=== PATIENT | male | born 1965 | race Caucasian/White ===

== ENCOUNTER 2024-09-16 07:53 | Observation (INO) | payer BC ==
--- NOTE | 2024-09-16 08:21 | ED ---
General Adult HPI - General Chief complaint: Neuro Symptoms/Deficit Stated complaint: Paresthesia Time Seen by Provider: 09/16/24 08:01 Source: patient, family, RN notes reviewed Mode of arrival: ambulatory Limitations: no limitations - History of Present Illness Initial comments: Patient is a 59-year-old male present to the emergency department with concerns for left arm paresthesias. Onset of symptoms was around 615 this morning. Symptoms have somewhat progressed and is now most of the arm. Patient also has mild paresthesias left left. No leg involvement. No right side involvement. No weakness. Patient did have some difficulty concentrating when trying to drive to work. Patient denies feeling off balance however family has concerns that he may have been walking a little bit funny. No speech problems. - Related Data Home Medications Medication Instructions Recorded Confirmed No Known Home Medications 09/16/24 09/16/24 Allergies Allergy/AdvReac Type Severity Reaction Status Date / Time No Known Allergies Allergy Verified 09/16/24 10:37 Review of Systems ROS Statement: Those systems with pertinent positive or pertinent negative responses have been documented in the HPI. ROS Other: All systems not noted in ROS Statement are negative. Constitutional: Denies: fever Eyes: Denies: eye pain ENT: Denies: ear pain Respiratory: Denies: cough Cardiovascular: Denies: chest pain Endocrine: Denies: fatigue Gastrointestinal: Denies: abdominal pain Genitourinary: Denies: dysuria Musculoskeletal: Denies: back pain Skin: Denies: rash Neurological: Reports: as per HPI Past Medical History Past Medical History: No Reported History Past Surgical History: No Surgical Hx Reported Smoking Status: Current every day smoker Past Alcohol Use History: Occasional Past Drug Use History: None Reported General Exam Limitations: no limitations General appearance: alert, in no apparent distress Head exam: Present: atraumatic, normocephalic Eye exam: Present: normal appearance, PERRL, EOMI. Absent: nystagmus ENT exam: Present: normal oropharynx Neck exam: Present: normal inspection Respiratory exam: Present: normal lung sounds bilaterally Cardiovascular Exam: Present: regular rate, normal rhythm GI/Abdominal exam: Present: soft. Absent: tenderness Extremities exam: Present: normal inspection, full ROM. Absent: tenderness Neurological exam: Present: alert, oriented X3, CN II-XII intact. Absent: motor sensory deficit Expanded Neurological exam: Present: protecting the airway Patient oriented to: Present: person, place, time Speech: Present: fluid speech Cranial nerves: EOM's Intact: Normal, Facial Sensation: Normal Sensory exam: Upper Extremity Light Touch: Normal, Lower Extremity Light Touch: Normal Motor strength exam: RUE: 5, LUE: 5, RLE: 5, LLE: 5 Eye Response: (4) open spontaneously Motor Response: (6) obeys commands Verbal Response: (5) oriented Psychiatric exam: Present: normal affect, normal mood Skin exam: Present: normal color Course Vital Signs 09/16/24 09/16/24 09/16/24 07:56 08:55 10:00 Temperature 97.4 F L Pulse Rate 81 68 68 Respiratory 18 16 16 Rate Blood Pressure 158/98 142/86 140/88 O2 Sat by Pulse 99 98 Oximetry 09/16/24 10:51 Temperature Pulse Rate 62 Respiratory 16 Rate Blood Pressure 149/83 O2 Sat by Pulse 98 Oximetry EKG Findings - EKG Results: EKG: interpreted by ERMD (Left axis.), sinus rhythm, normal QRS, normal ST/T Medical Decision Making - Medical Decision Making Was pt. sent in by a medical professional or institution (Dr. PA, SLUBBER MACHINE OPERATOR, urgent ca re, hospital, or fdc...) When possible be specific @ -No Did you speak to anyone other than the patient for history (EMS, parent, family, police, friend...)? What history was obtained from this source @ - is present and helps provide additional history including concerns for patient being off balance and having some confusion Did you review nursing and triage notes (agree or disagree)? Why? @ -I reviewed and agree with nursing and triage notes Were old charts reviewed (outside hosp., previous admission, EMS record, old EKG, old radiological studies, urgent care reports/EKG's, fdc records)? Report findings @ -No old charts were reviewed Differential Diagnosis (chest pain, altered mental status, abdominal pain women, abdominal pain men, vaginal bleeding, weakness, fever, dyspnea, syncope, headache, dizziness, GI bleed, back pain, seizure, CVA, palpatations, mental health, musculoskeletal)? @ -MDM differential disease differential Altered Mental Status: Hypoglycemia, DKA, hypercapnia, ETOH, overdose, CO poisoning, trauma, myxedema coma, HTN encephalopathy, infection, encephalitis, psychosis, intercranial hemorrhage, hepatic encephalopathy, meningitis, CVA, this is not meant to be an all-inclusive list EKG interpreted by me (3pts min.). @ -As above X-rays interpreted by me (1pt min.). @ -Chest x-ray shows nonspecific findings CT interpreted by me (1pt min.). @ -CT brain without acute intracranial abnormality U/S interpreted by me (1pt. min.). @ -None done What testing was considered but not performed or refused? (CT, X-rays, U/S, labs)? Why? @ -None What meds were considered but not given or refused? Why? @ -None Did you discuss the management of the patient with other professionals (professionals i.e. , PA, SLUBBER MACHINE OPERATOR, lab, RT, psych nurse, psychologist social, fuel oil clerk, teacher, casino surveillance officer, case operator)? Give summary @ -Case was discussed with Dr. Winston who will admit covering Dr. Boothe Was smoking cessation discussed for >3mins.? @ -No Was critical care preformed (if so, how long)? @ -No Were there social determinants of health that impacted care today? How? (Homelessness, low income, unemployed, alcoholism, drug addiction, can sportation, low edu. Level, literacy, decrease access to med. care, fpc, rehab)? @ -No Was there de-escalation of care discussed even if they declined (Discuss DNR or withdrawal of care, Hospice)? DNR status @ -No What co-morbidities impacted this encounter? (DM, HTN, Smoking, COPD, CAD, Cancer, CVA, ARF, Chemo, Hep., AIDS, mental health diagnosis, sleep apnea, morbid obesity)? @ -None Was patient admitted / discharged? Hospital course, mention meds given and route, prescriptions, significant lab abnormalities, going to OR and other pertinent info. @ -Patient presents with some mild nonspecific confusion and left-sided paresthesias. Questionable balance issue earlier. TIA cannot be ruled out. Patient will be admitted with neurology evaluation. Admission orders written. Undiagnosed new problem with uncertain prognosis? @ -No Drug Therapy requiring intensive monitoring for toxicity (Heparin, Nitro, Insulin, Cardizem)? @ -No Were any procedures done? @ -No Diagnosis/symptom? @ -Confusion Acute, or Chronic, or Acute on Chronic? @ -Acute Uncomplicated (without systemic symptoms) or Complicated (systemic symptoms)? @ -Default Side effects of treatment? @ -No Exacerbation, Progression, or Severe Exacerbation? @ -No Poses a threat to life or bodily function? How? (Chest pain, [place], [place], pneumonia, PE, COPD, DKA, ARF, appy, cholecystitis, CVA, Diverticulitis, Homicidal, S uicidal, threat to staff... and all critical care pts) @ -Threat to neurological function - Lab Data Result diagrams: 09/16/24 08:16 09/16/24 08:16 Lab Results 09/16/24 09/16/24 09/16/24 Range/Units 08:16 08:16 08:16 WBC 5.3 (3.8-10.6) k/uL RBC 5.17 (4.30-5.90) m/uL Hgb 16.6 (13.0-17.5) gm/dL Hct 49.7 (39.0-53.0) % MCV 96.0 (80.0-100.0) fL MCH 32.1 (25.0-35.0) pg MCHC 33.4 (31.0-37.0) g/dL RDW 12.4 (11.5-15.5) % Plt Count 259 (150-450) k/uL MPV 6.5 Neutrophils % 57 % Lymphocytes % 30 % Monocytes % 9 % Eosinophils % 2 % Basophils % 1 % Neutrophils # 3.0 (1.3-7.7) k/uL Lymphocytes # 1.6 (1.0-4.8) k/uL Monocytes # 0.5 (0-1.0) k/uL Eosinophils # 0.1 (0-0.7) k/uL Basophils # 0.0 (0-0.2) k/uL PT 11.0 (10.0-12.5) sec INR 1.0 (<1.2) APTT 24.4 (22.0-30.0) sec Sodium 138 (137-145) mmol/L Potassium 4.3 (3.5-5.1) mmol/L Chloride 107 (98-107) mmol/L Carbon Dioxide 25 (22-30) mmol/L Anion Gap 6 mmol/L BUN 16 (9-20) mg/dL Creatinine 1.13 (0.66-1.25) mg/dL Est GFR (CKD-EPI)AfAm 82 (>60 ml/min/1.73 sqM) Est GFR (CKD-EPI)NonAf 71 (>60 ml/min/1.73 sqM) Glucose 113 H (74-99) mg/dL Calcium 9.2 (8.4-10.2) mg/dL Total Bilirubin 0.7 (0.2-1.3) mg/dL AST 21 (17-59) U/L ALT 15 (4-49) U/L Alkaline Phosphatase 48 (38-126) U/L Creatine Kinase 75 (55-170) U/L Total Protein 7.3 (6.3-8.2) g/dL Albumin 4.3 (3.5-5.0) g/dL Disposition Clinical Impression: Confusion Disposition: ADMITTED IP TO THIS HOSP Is patient prescribed a controlled substance at d/c from ED?: No Referrals: Don Harmon [Primary Care Provider] - 1-2 days Time of Disposition: 10:56
[2024-09-16 08:39] LABS: Basophils % (A) 1 %; Eosinophils # (A) 0.1 k/uL (0-0.7); Eosinophils % (A) 2 %; HCT 49.7 % (39.0-53.0); HGB 16.6 gm/dL (13.0-17.5); Lymphocytes # (A) 1.6 k/uL (1.0-4.8); Lymphocytes % (A) 30 %; MCH 32.1 pg (25.0-35.0); MCHC 33.4 g/dL (31.0-37.0); Mean Platelet Volume 6.5; Monocytes # (A) 0.5 k/uL (0-1.0); Monocytes % (A) 9 %; Neutrophils % (A) 57 %; Platelet Count 259 k/uL (150-450); RBC 5.17 m/uL (4.30-5.90); RDW 12.4 % (11.5-15.5); WBC 5.3 k/uL (3.8-10.6)
[2024-09-16 08:55] LABS: ALT 15 U/L (4-49); AST 21 U/L (17-59); African American GFR (CKD) 82 (>60 ml/min/1.73 sqM); Albumin 4.3 g/dL (3.5-5.0); Alkaline Phosphatase 48 U/L (38-126); Anion Gap 6 mmol/L; Blood Urea Nitrogen 16 mg/dL (9-20); Calcium 9.2 mg/dL (8.4-10.2); Carbon Dioxide 25 mmol/L (22-30); Chloride 107 mmol/L (98-107); Creatine Kinase 75 U/L (55-170); Glucose 113 mg/dL (74-99); Non-African American GFR(CKD) 71 (>60 ml/min/1.73 sqM); Potassium 4.3 mmol/L (3.5-5.1); Sodium 138 mmol/L (137-145); Total Bilirubin 0.7 mg/dL (0.2-1.3); Total Protein 7.3 g/dL (6.3-8.2)
[2024-09-16 09:00] LABS: Partial Thromboplastin Time 24.4 sec (22.0-30.0)
--- NOTE | 2024-09-16 09:23 | XR ---
EXAMINATION TYPE: XR chest 2V DATE OF EXAM: 09/16/2024 8:51 AM COMPARISON: None. CLINICAL INDICATION: Male, 59 years old with history of altered mental status; TECHNIQUE: XR chest 2V Frontal and lateral views of the chest. FINDINGS: Lungs/Pleura: There is no evidence of pleural effusion, focal consolidation, or pneumothorax. Pulmonary vascularity: Unremarkable. Heart/mediastinum: Cardiomediastinal silhouette is unremarkable. Musculoskeletal: No acute osseous pathology. IMPRESSION: No acute cardiopulmonary disease/process. [facility], , 09/16/2024 9:21 AM
--- NOTE | 2024-09-16 09:23 | CT ---
EXAMINATION TYPE: CT brain wo con DATE OF EXAM: 09/16/2024 8:41 AM COMPARISON: Same day CTA. CLINICAL INDICATION: Male, 59 years old with history of Neuro deficit, acute, stroke suspected, Left hand, face and arm numbness. Symtpoms started at 0615 today TECHNIQUE: Brain: Axial CT images of the brain were obtained with coronal and sagittal reformats created and rev iewed. Contrast used: None. Oral contrast used: None. CT DLP: 1122 mGycm, Automated exposure control for dose reduction was used. FINDINGS: Brain: Extra-axial spaces: No abnormal extra-axial fluid collections. Ventricular system: Within normal limits Cerebral parenchyma: No acute intraparenchymal hemorrhage or mass effect. The martinez-white junction is well differentiated. Cerebellum: Unremarkable. Mass effect: No evidence of midline shift. Intracranial vasculature: unremarkable Soft tissues: Normal. Calvarium/osseous structures: No depressed skull fracture. Paranasal sinuses and mastoid air cells: Mild scattered paranasal sinus disease. Visualized orbits: Orbital contents are intact. IMPRESSION: No acute intracranial process. [facility], , 09/16/2024 9:20 AM
--- NOTE | 2024-09-16 09:41 | CT ---
EXAMINATION TYPE: CT angio head neck DATE OF EXAM: 09/16/2024 COMPARISON: CT brain same day HISTORY: 59-year-old male neurologic deficit, acute, stroke suspected, Left arm, face and hand numbne ss with symptoms starting at 0615 today TECHNIQUE: Contiguous axial scanning of the head and neck performed with IV Contrast, patient injecte d with 65 ml mL of Isovue 370. Coronal/sagittal reconstructions performed. 3-D reconstructions genera humphrey on a dedicated independent workstation. CT DLP: 567.8 mGycm Automated exposure control for dose reduction was used. FINDINGS: Neck: Moderate emphysematous change in the visualized upper lungs. Some scattered lymph nodes in the medias tinum, some of which are borderline in size measuring up to 1 cm probably reactive/post inflammatory. Conventional branching anatomy. Ectatic upper descending thoracic aorta at 3.0 cm. The right vertebral artery is dominant. Otherwise, both vertebral arteries are patent throughout the course. The bilateral common carotid arteries are patent. There is mild atherosclerotic change at the bilater al carotid bifurcations. On the right, this contributes to a mild, 20% narrowing at the origin of the right ICA. On the left, this contributes to a mild, 15% narrowing at the origin of the left ICA. Otherwise, the bilateral ICAs are pain. NASCET criteria is utilized. Head: Dominant right vertebral artery. Otherwise, the vertebral and basilar artery as well as the remainder of the posterior circulation is patent. The bilateral internal carotid arteries and remainder of the anterior circulation is patent. Dural venous sinuses are patent. No aneurysmal change is seen. IMPRESSION: NECK: 1. MILD ATELECTATIC CHANGE IN THE BILATERAL CAROTID BIFURCATIONS RESULTING IN MILD, 20% OR LESS NARRO WING AT THE ORIGIN OF THE ICA ON EITHER SIDE. 2. DOMINANT RIGHT VERTEBRAL ARTERY. 3. COPD WITH MODERATE EMPHYSEMA IN THE VISUALIZED UPPER LUNGS. HEAD: 4. AGAIN, DOMINANT RIGHT VERTEBRAL ARTERY. 5. OTHERWISE, NO LARGE VESSEL INTRACRANIAL ARTERIAL OCCLUSION, SIGNIFICANT STENOSIS, OR ANEURYSMAL CH AVINASH IS SEEN. [facility], , 09/16/2024 9:38 AM
[2024-09-16] MEDS: ASPIRIN 325 MG TAB PO STA (11:05)
[2024-09-16] MEDS: NICOTINE 21MG/24HR PATCH TRANSDERM STA (11:27)
--- NOTE | 2024-09-16 11:42 | P.HPIM ---
History of Present Illness 59-year-old pleasant male came in with complaints of left arm paresthesias along with numbness on the left lower face without any weakness numbness or slurry speech except for mild headache in the morning which resolved at this time. Patient does not have any other tingling numbness. REVIEW OF SYSTEMS: All other systems are negative except those mentioned in the HPI PHYSICAL EXAMINATION: GENERAL: The patient is alert and oriented x3, not in any acute distress. Well developed, well nourished. HEENT: Pupils are round and equally reacting to light. EOMI. No scleral icterus. No conjunctival pallor. Normocephalic, atraumatic. No pharyngeal erythema. No thyromegaly. CARDIOVASCULAR: S1 and S2 present. No murmurs, rubs, or gallops. PULMONARY: Chest is clear to auscultation, no wheezing or crackles. ABDOMEN: Soft, nontender, nondistended, normoactive bowel sounds. No palpable organomegaly. MUSCULOSKELETAL: No joint swelling or deformity. EXTREMITIES: No cyanosis, clubbing, or pedal edema. NEUROLOGICAL: Gross neurological examination did not reveal any focal deficits. SKIN: No rashes. Assessment and plan -Possible TIA: CT of the head and CT angio of the head and neck are essentially within normal limits except for mild atherosclerotic changes at the carotid bifurcations neurology was consulted, patient will be monitored overnight. Leave addition of echocardiogram to neurology. -Nicotine use: Counseling was provided patient presently have a nicotine patch DVT prophylaxis: Early ambulation Past Medical History Past Medical History: No Reported History Past Surgical History: No Surgical Hx Reported Smoking Status: Current every day smoker Past Alcohol Use History: Occasional Past Drug Use History: None Reported Medications and Allergies Home Medications Medication Instructions Recorded Confirmed Type No Known Home Medications 09/16/24 09/16/24 History Allergies Allergy/AdvReac Type Severity Reaction Status Date / Time No Known Allergies Allergy Verified 09/16/24 10:37 Physical Exam Vitals: Vital Signs Temp Pulse Resp BP Pulse Ox 09/16/24 11:31 78 20 145/86 98 09/16/24 10:51 62 16 149/83 98 09/16/24 10:00 68 16 140/88 09/16/24 08:55 68 16 142/86 98 09/16/24 07:56 97.4 F L 81 18 158/98 99 Intake and Output 09/15/24 09/16/24 09/16/24 22:59 06:59 14:59 Other: Weight 99.79 kg Results CBC & Chem 7: 09/16/24 08:16 09/16/24 08:16 Labs: Abnormal Lab Results - Last 24 Hours (Table) 09/16/24 Range/Units 08:16 Glucose 113 H (74-99) mg/dL
[2024-09-16] MEDS: CLOPIDOGREL 75 MG TAB PO SCH (23:08)
[2024-09-17 07:43] VITALS: BP 152/84; PULSE 60; RESP 17; TEMP 97.4
[2024-09-17] MEDS: ASPIRIN 325 MG TAB PO SCH (08:23)
--- NOTE | 2024-09-17 09:59 | P.CNNES ---
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 Patient's and children were also present at the time of this evaluation. Patient mentions that he woke up at 6 AM this morning and was feeling fine. He took his morning coffee and then went to shower at about 6:10 AM. While he was in the shower, he noticed numbness of the left hand as if it was asleep. After shower, he got ready, got into the car and started driving to work. He did not feel normal. His whole left arm became numb. He came back home. His left side of the face and the left perioral region also felt numb. He was walking slow, talking slow, was confused. He also had some headache off and on 3 times. It was brief. His vision was fine. There was no focal weakness of the arms or legs or any facial droop or slurred speech. He had to think what he wanted to say. His family brought him to the hospital. His symptoms started improving and was gone in about 1-1/2 to 2 hours. At present he is back to normal. He was not a candidate for TNK because rapidly improving symptoms and then resolved. Vital signs on arrival blood pressure 158/98, pulse rate 81 temperature 97.4. Blood test shows normal CBC, PT PTT, normal CMP. EKG showed sinus rhythm, borderline left axis deviation. CT head revealed no acute intracranial process. I personally reviewed CT head, agree with the findings. Chest x-ray revealed no acute cardiopulmonary process. Patient does not take any medications, does not take any antiplatelet medication at home. Patient has history of borderline hypertension, denies diabetes or hyperlipidemia. Previous history of strokes or TIA. He started smoking in high school. He quit smoking for 15 years, but has resumed it a pack a day for last 8 years. He drinks alcohol occasionally, no marijuana. Review of Systems All completely unremarkable except as mentioned in HPI. Past Medical History Past Medical History: No Reported History Past Surgical History: No Surgical Hx Reported Smoking Status: Current every day smoker Past Alcohol Use History: Occasional Past Drug Use History: None Reported - Past Family History Sister(s) Family Medical History: CVA/TIA Father Family Medical History: CVA/TIA Additional Family Medical History / Comment(s): pulmonary fibrosis Medications and Allergies Home Medications Medication Instructions Recorded Confirmed Type No Known Home Medications 09/16/24 09/16/24 History Allergies Allergy/AdvReac Type Severity Reaction Status Date / Time No Known Allergies Allergy Verified 09/16/24 10:37 Physical Examination - Vital Signs Vital Signs: Vital Signs Temp Pulse Resp BP Pulse Ox 09/16/24 18:00 68 20 130/68 98 09/16/24 15:51 62 20 125/76 98 09/16/24 13:00 68 16 130/68 98 09/16/24 11:31 78 20 145/86 98 09/16/24 10:51 62 16 149/83 98 09/16/24 10:00 68 16 140/88 09/16/24 08:55 68 16 142/86 98 09/16/24 07:56 97.4 F L 81 18 158/98 99 Intake and Output 09/16/24 09/16/24 09/16/24 06:59 14:59 22:59 Other: Weight 99.79 kg Patient is a late middle-aged male, in no acute distress. Patient is alert awake oriented to time place and person. Speech and language functions are normal. Patient can name and repeat very well. No aphasia or dysarthria. Attention, concentration and fund of knowledge is adequate. On cranial nerve examination, pupils are equal, round and reacting to light, visual wells are full on confrontation, with no neglect on double simultaneous stimulation. Extraocular muscles are intact with no nystagmus. Face is symmetric, tongue protrudes to the midline. Palatal elevation and sensation normal, hearing and shoulder shrug normal, facial sensation normal. On muscle strength testing, there is no pronator drift and the strength is normal in arms and legs distally and proximally. Deep tendon reflexes are symmetric 1+ all over and plantars downgoing. Sensory to touch is equal with no neglect on double simultaneous stimulation. Cerebellar function showed no ataxia for [id number] testing. No dysdiadochokinesia. No ataxia for [id number] testing on either side. Tone and bulk of muscles normal. Gait deferred.. On general examination, there is no carotid bruit or murmur, S1-S2 audible. Chest is clear on consultation. Abdomen is soft nontender. No organomegaly, bowel sounds present. Peripheral pulses are present. No peripheral edema. Results - Laboratory Findings CBC and BMP: 09/16/24 08:16 09/16/24 08:16 Abnormal Lab Findings: Abnormal Labs 09/16/24 08:16 Glucose 113 H Assessment and Plan Assessment: * Probable TIA, manifesting with numbness of the left arm and left perioral region, with slow speech, that lasted for 1-1/2 to 2 hours and then resolved. Patient's current NIH stroke scale is 0. Patient not a candidate for TNK because symptoms resolved. * Elevated blood pressure, possible hypertension * Tobacco use Plan: * Patient had a TIA. His ABCD 2 score was 5, which is a moderate risk. * Patient was not taking any antiplatelet medication at home. He will be placed on dual antiplatelet medication with aspirin 81 mg and Plavix 75 mg for 21 days. Thereafter he can stop Plavix and continue aspirin indefinitely. * Fasting a.m. lipid panel * Hemoglobin A1c 5.5 * 2D echo with bubble study, rule out PFO. * CTA of head and neck revealed mild atherosclerotic change in the bilateral carotid bifurcations resulting in mild, 20% or less narrowing at the origin of the ICA on either side. Dominant right vertebral artery. No large vessel intracranial arterial occlusion, significant stenosis or aneurysmal change. * We discussed about MRI. Patient's symptoms resolved within 1-1/2 to 2 hours and current examination is normal. MRI yield is low. * Recommend complete tobacco cessation. * DVT prophylaxis: Low risk patient ambulatory. * Neurology will follow. Thank you for the consult.
--- NOTE | 2024-09-17 10:03 | CA ---
Transthoracic Echo Report Name: Dong Mari Age: 59 Gender: M : 1965 Exam Date: 09/17/2024 08:26 Exam Location: [facility] Ht (in): 72 Wt (lb): 220 Ordering Physician: Juan Manuel Zurita DO Attending/Referring Phys: Claims Account Specialist Kellie Gonzales RDCS Procedure CPT: Indications: Thrombus Cardiac Hx: Technical Quality: Good Contrast 1: Agitated Saline Total Dose (mL): 2 Contrast 2: Total Dose (mL): MEASUREMENTS (Male / Female) Normal Values 2D ECHO LV Diastolic Diameter PLAX 4.6 cm 4.2 - 5.9 / 3.9 - 5.3 cm LV Systolic Diameter PLAX 3.2 cm IVS Diastolic Thickness 1.0 cm 0.6 - 1.0 / 0.6 - 0.9 cm LVPW Diastolic Thickness 0.8 cm 0.6 - 1.0 / 0.6 - 0.9 cm LV Relative Wall Thickness 0.4 LVOT Diameter 2.4 cm LV Diastolic Volume MOD BP 114.2 cm??? 67 - 155 / 56 - 104 cm??? LV Systolic Volume MOD BP 44.9 cm??? 22 - 58 / 19 - 49 cm??? LV Ejection Fraction MOD BP 60.7 % >= 55 % LV Cardiac Index MOD BP 1889.2 cm???/min???m??? LV Diastolic Volume MOD 4C 93.8 cm??? LV Systolic Volume MOD 4C 35.6 cm??? LV Ejection Fraction MOD 4C 62.1 % LV Cardiac Index MOD 4C 1586.9 cm???/min???m??? LV Diastolic Length 4C 8.0 cm LV Systolic Length 4C 7.0 cm LV Diastolic Volume MOD 2C 120.7 cm??? LV Systolic Volume MOD 2C 50.1 cm??? LV Ejection Fraction MOD 2C 58.5 % LV Cardiac Index MOD 2C 1925.8 cm???/min???m??? LV Diastolic Length 2C 9.2 cm LV Systolic Length 2C 8.0 cm LA Volume 48.2 cm??? 18 - 58 / 22 - 52 cm??? LA Volume Index 21.2 cm???/m??? 16 - 28 cm???/m??? Ascending Aorta Diameter 3.4 cm DOPPLER AV Peak Velocity 103.7 cm/s AV Peak Gradient 4.3 mmHg AV Mean Velocity 77.3 cm/s AV Mean Gradient 2.6 mmHg AV Velocity Time Integral 24.4 cm LVOT Peak Velocity 89.7 cm/s LVOT Peak Gradient 3.2 mmHg LVOT Velocity Time Integral 19.3 cm LVOT Stroke Volume 88.8 cm??? LVOT Stroke Volume Index 40.0 ml/m??? LVOT Cardiac Index 2421.8 cm???/min???m??? AV Area Cont Eq vti 3.6 cm??? AV Area Cont Eq pk 4.0 cm??? MV Area PHT 3.3 cm??? Mitral E Point Velocity 44.1 cm/s Mitral A Point Velocity 44.1 cm/s Mitral E to A Ratio 1.0 MV Deceleration Time 228.3 ms PV Peak Velocity 130.1 cm/s PV Peak Gradient 6.8 mmHg FINDINGS Left Ventricle Left ventricular ejection fraction is estimated at 55-60 %. Left ventricular cavity size normal. Left ventricular wall thickness normal. No obvious regional wall motion abnormalities. Right Ventricle Normal right ventricular size and function. Unable to estimate the right ventricular systolic pressure. Right Atrium Normal right atrial size. Negative agitated saline bubble study for right to left shunt. Left Atrium Normal left atrial size. Mitral Valve Structurally normal mitral valve. No mitral stenosis, regurgitation or prolapse. Aortic Valve Trileaflet aortic valve. No aortic valve stenosis or regurgitation. Tricuspid Valve Structurally normal tricuspid valve. No tricuspid stenosis, regurgitation or prolapse. Pulmonic Valve Structurally normal pulmonic valve. No pulmonic stenosis. Mild pulmonic regurgitation. Pericardium No pericardial effusion. Aorta Normal size aortic root and proximal ascending aorta. CONCLUSIONS Normal LV function Negative bubble study Consider transesophageal echo if clinically indicated Previewed by: Dr. Wali Frazier MD (Electronically Signed) Final Date: 17 September 2024 10:02
--- NOTE | 2024-09-17 12:54 | P.PN ---
Subjective Progress Note Date: 09/17/24 Patient was seen for a follow-up. Patient's is also present at the bedside. Patient denies any new focal symptoms. Patient feels back to normal. Patient admits that he was slightly confused, but he remembers all details. Did not lose consciousness. Objective - Vital Signs Vital signs: Vital Signs Temp 97.4 F L 09/17/24 07:05 Pulse 60 09/17/24 07:05 Resp 17 09/17/24 07:05 BP 152/84 09/17/24 07:05 Pulse Ox 96 09/17/24 07:05 FiO2 Intake & Output 09/16/24 09/17/24 09/17/24 18:59 06:59 18:59 Intake Total 118 Balance 118 Weight 99.79 kg 99.79 kg Intake: Oral 118 Other: Voiding Method Toilet # Voids 1 - Exam Patient's examination is normal. Mentation normal. - Labs CBC & Chem 7: 09/16/24 08:16 09/16/24 08:16 Assessment and Plan Assessment: * Probable TIA, manifesting with numbness of the left arm and left perioral region, with slow speech, that lasted for 1-1/2 to 2 hours and then resolved. Patient's current NIH stroke scale is 0. Patient not a candidate for TNK because symptoms resolved. * Elevated blood pressure, possible hypertension * Tobacco use Plan: * Patient had a TIA. His ABCD 2 score was 5, which is a moderate risk. * Patient was not taking any antiplatelet medication at home. He will be placed on dual antiplatelet medication with aspirin 81 mg and Plavix 75 mg for 21 days. Thereafter he can stop Plavix and continue aspirin indefinitely. * Fasting a.m. lipid panel with cholesterol 162, LDL 108, HDL 38, triglycerides 79. Patient to be started on Lipitor 20 mg daily. * Hemoglobin A1c 5.5 * Optimize control of blood pressure. * 2D echo revealed normal left ventricular size and systolic function with EF 55 to 60%. No obvious regional wall motion abnormalities. Normal left and right atrium. Negative agitated saline bubble study for [id number] shunt. No valvular abnormalities. * CTA of head and neck revealed mild atherosclerotic change in the bilateral carotid bifurcations resulting in mild, 20% or less narrowing at the origin of the ICA on either side. Dominant right vertebral artery. No large vessel intracranial arterial occlusion, significant stenosis or aneurysmal change. * We discussed about MRI. Patient's symptoms resolved within 1-1/2 to 2 hours and current examination is normal. MRI yield is low. It will probably not change the management. * Recommend complete tobacco cessation. * DVT prophylaxis: Low risk patient ambulatory.
[2024-09-17 19:58] LABS: Chol/HDL Ratio 4.26 Ratio; LDL Cholesterol,Calculated 108.1 mg/dL (0.0-131.0)
--- NOTE | 2024-09-21 14:41 | P.DS ---
Providers Date of admission: 09/16/24 10:56 Attending physician: Ksenia Madison Consults: 09/16/24 10:57 Consult Physician Routine Consulting Provider: Osvaldo Esparza Consult Reason/Comments: confusion, eval for tia Do you want consulting provider notified?: Yes Primary care physician: Don Mata [facility] Course: Final Diagnosis -Possible TIA: CT of the head and CT angio of the head and neck are essentially within normal limits except for mild atherosclerotic changes at the carotid bifurcations. -Nicotine use: Counseling was provided patient presently have a nicotine patch Discharge Disposition Patient stable for discharge home. Continue aspirin and plavix for 21 days and than continue on aspirin 81 mg daily. 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 Patient mentions that he woke up at 6 AM this morning and was feeling fine. While he was in the shower, he noticed numbness of the left hand as if it was asleep. After shower, he got ready, got into the car and started driving to work. He did not feel normal. His whole left arm became numb. He came back home. His left side of the face and the left perioral region also felt numb. He was walking slow, talking slow, was confused. He also had some headache off and on 3 times. It was brief. His vision was fine. There was no focal weakness of the arms or legs or any facial droop or slurred speech. He had to think what he wanted to say. His family brought him to the hospital. His symptoms started improving and was gone in about 1-1/2 to 2 hours. At present he is back to normal. He was not a candidate for TNK because rapidly improving symptoms and then resolved. CT head revealed no acute intracranial process. Chest x-ray revealed no acute cardiopulmonary process. Echocardiogram reveals EF 55 to 60% with negative bubble study.'s have resolved at this time. Patient will not be getting a brain MRI as the threshold for yield is low. He should follow-up with her neurologist on discharge. Patient continue on aspirin and Plavix for the next 21 days and then discontinue Plavix and continue on aspirin 81 mg daily. He is cleared for discharge home. Please see medication reconciliation for a list of current medications. Thank you for allowing us to participate in the care of this patient. The impression and plan of care has been dictated by Joanne Angela, Nurse Practitioner as directed. Dr. Gricelda MD I have performed a history and physical examination and medical decision making of this patient, discussed the same with the dictator, and agree with the dictators assessment and plan as written, documented as a scribe. Based on total visit time, I have performed more than 50% of this visit. Patient Condition at Discharge: Stable Plan - Discharge Summary Discharge Rx Participant: No New Discharge Prescriptions: New Clopidogrel [Plavix] 75 mg PO DAILY #21 tab Atorvastatin [Lipitor] 20 mg PO DAILY #30 tablet Aspirin 325 mg PO DAILY #30 tab Discharge Medication List Aspirin 325 mg PO DAILY #30 tab 09/17/24 [Rx] Atorvastatin [Lipitor] 20 mg PO DAILY #30 tablet 09/17/24 [Rx] Clopidogrel [Plavix] 75 mg PO DAILY #21 tab 09/17/24 [Rx] Follow up Appointment(s)/Referral(s): Don Harmon [Primary Care Provider] - 1-2 days Sampson Metz DO [STAFF PHYSICIAN] - 1 Week Patient Instructions/Handouts: Transient Ischemic Attack (DC) Activity/Diet/Wound Care/Special Instructions: Establish care with a neurologist Continue aspirin and plavix together for 21 days than stop the plavix and continue on aspirin 81 mg daily. Discharge Disposition: HOME SELF-CARE
== END 2024-09-17 16:25 | disposition home or self-care (01) ==
LOC: EC 07:53 → SUPCPDRO 07:53 → 6NMEDSUR 10:56
PROVIDERS: ADMIT Internal Medicine; ATTEND Internal Medicine
DX: R41.0 Disorientation, unspecified (principal); R20.2 Paresthesia of skin; R47.89 Other speech disturbances; R20.0 Anesthesia of skin; R03.0 Elevated blood-pressure reading, without diagnosis of hypertension; R51.9 Headache, unspecified; F17.210 Nicotine dependence, cigarettes, uncomplicated; Z71.6 Tobacco abuse counseling; Z82.3 Family history of stroke
CPT/HCPCS: 99285; 36415; 93005; 93306; 92523; 80061; 80053; 82550; 85025; 85610; 85730; 83036; 71046; 70496; 70450; 70498; G0378 ×2; S4990; Q9967

== ENCOUNTER → 2024-12-04 | Outpatient (CLI) | payer BC ==
--- NOTE | 2024-12-04 19:47 | MR ---
EXAMINATION TYPE: MR brain wo con DATE OF EXAM: 12/04/2024 7:35 PM COMPARISON: 09/08/2024. CLINICAL INDICATION: Male, 59 years old with history of G45.9 TRANSIENT CEREBRAL ISCHEMIC ATTACK; PHH , TIA TECHNIQUE: Multi planar, multi sequence imaging was performed through the brain including: T1, T2, In version recovery, Diffusion weighted imaging, and gradient echo imaging. No gadolinium was given. FINDINGS: The martinez-white junctions, ventricular system, basal cisterns appear unremarkable. Scattered foci of high T2 signal intensity are seen within the periventricular white matter. Midline structures show n o abnormality. Diffusion-weighted imaging shows no evidence of restricted diffusion. The susceptibili ty weighted images do not reveal any evidence for micro-hemorrhage. The bone marrow signal is within normal limits. Paranasal sinuses and mastoid air cells: No significant paranasal sinus disease. Visualized orbits: Orbital contents are intact. IMPRESSION: 1. No evidence of intracranial mass or acute/subacute infarct. 2. Nonspecific white matter changes, likely secondary to small vessel ischemic disease. [facility], , 12/04/2024 7:45 PM
== END | disposition home or self-care (01) ==
LOC: RADMRIMAIN 18:58
PROVIDERS: ATTEND Psychiatry & Neurology Neurology
DX: G45.9 Transient cerebral ischemic attack, unspecified (principal); R90.82 White matter disease, unspecified; Z86.73 Personal history of transient ischemic attack (TIA), and cerebral infarction without residual deficits
CPT/HCPCS: 70551